=== PATIENT | male | born 1990 | race African-American/Black ===

== ENCOUNTER 2017-12-19 11:10 | Emergency (ER) | payer OTHER ==
[2017-12-19 11:28] VITALS: BP 155/63
--- NOTE | 2017-12-19 11:42 | UC ---
Throat Pain/Nasal Tex HPI - HPI Summary HPI Summary: 27 y/o male presents to the urgent care c/o sinus congestion w/ green nasal discharge and fatigue and for the past 2 days. Mild sore throat. Pain i s5/10 and has not taking anything to alleviate symptoms. Pt has not measure his temperature, but has felt hot w/ chills. Pt denies SOB, chest pain, abdominal pain, N/V/D, Hx of tick bites or rashes. - History of Current Complaint Chief Complaint: UCRespiratory Stated Complaint: NASAL CONGESTION, BODY ACHES Time Seen by Provider: 12/19/17 11:26 Hx Obtained From: Patient Onset/Duration: Gradual Onset, Lasting Days - 2 days, Still Present, Worse Since - today Severity: Moderate Pain Intensity: 5 - body aches and ROWELL Pain Scale Used: 0-10 Numeric Cough: Nonproductive Associated Signs & Symptoms: Positive: Sinus Discomfort, Nasal Discharge, Other - fatigue, chills - Epiglottits Risk Factors Epiglottis Risk Factors: Negative - Allergies/Home Medications Allergies/Adverse Reactions: Allergies Allergy/AdvReac Type Severity Reaction Status Date / Time No Known Allergies Allergy Verified 12/19/17 11:28 Home Medications: Home Medications Brimonidine Tartrate 1 drop OPHTHALMIC BID 12/19/17 [History Confirmed 12/19/17] Difluprednate 0.05% (NF) [Durezol 0.05% (NF)] 1 drop OPHTHALMIC BID 12/19/17 [ History Confirmed 12/19/17] Ganciclovir OPHTH 0.15%(NF) [Zirgan(NF)] 1 drop OPHTHALMIC BID 12/19/17 [ History Confirmed 12/19/17] PMH/Surg Hx/FS Hx/Imm Hx Previously Healthy: Yes Other Endocrine History: Iritis - Surgical History Surgical History: Yes Surgery Procedure, Year, and Place: ACL repairs x2 - Family History Known Family History: Positive: Other - testicular cancer Family History: glaucoma - Social History Occupation: Employed Full-time Lives: With Family Alcohol Use: Occasionally Substance Use Type: None Smoking Status (MU): Never Smoked Tobacco Review of Systems Constitutional: Chills, Fatigue, Other - body aches Skin: Negative Eyes: Negative ENT: Sore Throat - mild, Nasal Discharge, Sinus Congestion Respiratory: Cough - dry Cardiovascular: Negative Gastrointestinal: Negative Genitourinary: Negative Motor: Negative Neurovascular: Negative Musculoskeletal: Negative Neurological: Headache Psychological: Negative Is Patient Immunocompromised?: No All Other Systems Reviewed And Are Negative: Yes Physical Exam - Summary Physical Exam Summary: VITAL SIGNS: Reviewed. GENERAL: Patient is a well developed and nourished male who is sitting comfortable in the examining table. Patient is not in any acute respiratory distress. HEAD AND FACE: No signs of trauma. No ecchymosis, hematomas or skull depressions. No sinus tenderness. EYES: PERRLA, EOMI x 2, No injected conjunctiva, no nystagmus. No photophobia. EARS: Hearing grossly intact. Ear canals and tympanic membranes are within normal limits. Nose: edematous and erythematous nasal mucosa w/ clear nasal discharge. MOUTH: Positive no erythema, no tonsillar enlargement. Uvula in midline. NECK: Supple, trachea is midline, Positive anterior cervical lymphadenopathy, no JVD, no carotid bruit, no c-spine tenderness, neck with full ROM. No meningeal signs, no Kernig's or brudzinskis signs. CHEST: Symmetric, no tenderness at palpation LUNGS: Clear to auscultation bilaterally. No wheezing or crackles. CVS: Regular rate and rhythm, S1 and S2 present, no murmurs or gallops appreciated. ABDOMEN: Soft, non-tender. No signs of distention. No rebound no guarding, and no masses palpated. Bowel sounds are normal. EXTREMITIES: FROM in all major joints, no edema, no cyanosis or clubbing. NEURO: Alert and oriented x 3. No acute neurological deficits. Speech is normal and follows commands. SKIN: Dry and warm Triage Information Reviewed: Yes Vital Signs: Initial Vital Signs Temp 98.4 F 12/19/17 11:19 Pulse 53 12/19/17 11:19 Resp 18 12/19/17 11:19 BP 155/63 12/19/17 11:19 Pulse Ox 97 12/19/17 11:19 Throat Pain/Nasal Course/Dx - Course Course Of Treatment: 27 y/o male presents to the urgent care c/o sinus congestion w/ green nasal discharge and fatigue and for the past 2 days. Mild sore throat. Pain i s5/10 and has not taking anything to alleviate symptoms. Pt has not measure his temperature, but has felt hot w/ chills. Pt denies SOB, chest pain, abdominal pain, N/V/D, Hx of tick bites or rashes.Hx obtained. Pt with URI on examination. Influenza A&B ordered: result: negative. PT Rx ibuprofen PO to alleviates symptoms. Advised on hand washing and wear a mask to avoid spreading. Pt advised to rest, increase fluid intake, eat well and avoid strenuous exercise. If symptoms do not improve or worsen advised to return to the urgent care or f/u with PCP for further evaluation and treatment. Pt's BP is elevated today advised to decrease salt in diet, monitor BP and f/u with PCP for further management. Pt understood and agreed with plan of care. - Differential Dx/Diagnosis Differential Diagnosis/HQI/PQRI: Laryngitis, Mononucleosis, Pharyngitis, Sinusitis, Tonsillitis, URI Provider Diagnoses: 1- Upper respiratory infection. 2- Elevate BP w/o Hx of HTN Discharge - Sign-Out/Discharge Documenting (check all that apply): Patient Departure - D/c home All imaging exams completed and their final reports reviewed: No Studies - Discharge Plan Condition: Stable Disposition: HOME Prescriptions: Ibuprofen TAB* [Motrin TAB* 800 MG] 800 mg PO Q6H PRN #30 tab PRN Reason: Pain Patient Education Materials: Upper Respiratory Infection (ED), Low-Sodium Diet (ED) Forms: *Work Release Referrals: [facility] [place]] - 3 Days Additional Instructions: 1-Please take ibuprofen PO q6-8hrs prn as instructed after meals to alleviate pain and swelling. Increase fluid intake, eat well, rest and avoid strenuous exercise 2-If symptoms do not improve or worsen please return to the urgent care or f/u with your PCP in 3 days for further evaluation and treatment. 3-Your BP is elevated today. please decrease salt in your diet, monitor BP and if it continues to be elevated please f/u with your PCP for further management - Billing Disposition and Condition Condition: STABLE Disposition: Home - Attestation Statements Provider Attestation: I was available for consult. This patient was seen by the [facility]. The patient was not presented to, seen by, or examined by me. -Brandy
== END 2017-12-19 12:45 | disposition home or self-care (01) ==
LOC: UCEAST 11:10
DX: J06.9 Acute upper respiratory infection, unspecified (principal); R03.0 Elevated blood-pressure reading, without diagnosis of hypertension
CPT/HCPCS: 99202; G0463

== ENCOUNTER 2018-05-14 10:52 | Emergency (ER) | payer OTHER ==
[2018-05-14 11:23] VITALS: BP 120/56
[2018-05-14 12:02] LABS: Influenza A Molecular NEGATIVE (Negative); Influenza B Molecular NEGATIVE (Negative)
--- NOTE | 2018-05-14 12:25 | UC ---
FLU HPI - HPI Summary HPI Summary: 2 days of cough, congestion, headache, body aches and fatigue. Denies fever, nausea/vomiting. No flu shot this season. - History of Current Complaint Chief Complaint: UCGeneralIllness Stated Complaint: FLU LIKE SYMP Time Seen by Provider: 05/14/18 11:51 Hx Obtained From: Patient Onset/Duration: Gradual Onset, Lasting Days, Still Present Severity Currently: Moderate Severity Initially: Moderate Pain Intensity: 4 Pain Scale Used: 0-10 Numeric Associated Signs & Symptoms: Positive: Myalgia, Cough, Nasal Congestion, Headache. Negative: Fever, Sore Throat - Allergy/Home Medications Allergies/Adverse Reactions: Allergies Allergy/AdvReac Type Severity Reaction Status Date / Time No Known Allergies Allergy Verified 05/14/18 11:23 Home Medications: Home Medications Loteprednol 0.5% OPH.SUSP(NF) [Lotemax 0.5% OPH.SUSP (NF)] 1 % .ROUTE BID [History Confirmed 05/14/18] PMH/Surg Hx/FS Hx/Imm Hx - Additional Past Medical History Additional PMH: GLAUCOMA - Surgical History Surgical History: Yes Surgery Procedure, Year, and Place: ACL repairs x2 - Family History Known Family History: Positive: Other - testicular cancer Family History: glaucoma - Social History Alcohol Use: Occasionally Substance Use Type: None Smoking Status (MU): Never Smoked Tobacco Review of Systems All Other Systems Reviewed And Are Negative: Yes Constitutional: Positive: Fatigue ENT: Positive: Nasal Discharge Respiratory: Positive: Cough Cardiovascular: Positive: Negative Gastrointestinal: Positive: Negative Musculoskeletal: Positive: Myalgia Neurological: Positive: Headache Physical Exam Triage Information Reviewed: Yes Appearance: Well-Appearing, No Pain Distress, Well-Nourished Vital Signs: Initial Vital Signs Temp 99.5 F 05/14/18 11:20 Pulse 58 05/14/18 11:20 Resp 18 05/14/18 11:20 BP 120/56 05/14/18 11:20 Pulse Ox 100 05/14/18 11:20 Laboratory Tests 05/14/18 11:50 Influenza A (Rapid) Negative Influenza B (Rapid) Negative Vital Signs Reviewed: Yes Eyes: Positive: Conjunctiva Clear ENT: Positive: Hearing grossly normal, Pharynx normal, TMs normal Neck: Positive: Supple, Nontender, No Lymphadenopathy Respiratory Exam: Normal Cardiovascular Exam: Normal Abdomen Description: Positive: Soft Musculoskeletal: Positive: No Edema Neurological: Positive: Alert Psychological: Positive: Age Appropriate Behavior Skin: Negative: Rashes Flu Course/Dx - Differential Dx/Diagnosis Provider Diagnosis: Acute viral syndrome Discharge - Sign-Out/Discharge Documenting (check all that apply): Patient Departure All imaging exams completed and their final reports reviewed: No Studies - Discharge Plan Condition: Stable Disposition: HOME Patient Education Materials: Viral Syndrome (ED) Forms: *Work Release Referrals: No Primary Care Phys,NOPCP [Primary Care Provider] - Additional Instructions: FLU SWAB NEGATIVE. YOUR SYMPTOMS ARE STILL LIKELY VIRALLY MEDIATED AND SHOULD RESOLVE ON THEIR OWN WITH TIME. NO INDICATION FOR ANTIBIOTICS AT PRESENT. REST, HYDRATE, OTC MEDS NEEDED. SEEK FOLLOW-UP IF YOU ARE NOT IMPROVING OVER THE NEXT 1-2 WEEKS. CALL THE NUMBER BELOW FOR ASSISTANCE IN ESTABLISHING WITH A PCP An additional resource available to assist in finding the appropriate physician for your health care needs is the [facility] ([facility]). You may contact them by calling [phone]. - Billing Disposition and Condition Condition: STABLE Disposition: Home
== END 2018-05-14 12:41 | disposition home or self-care (01) ==
LOC: UCEAST 10:52
DX: B34.9 Viral infection, unspecified (principal); R05 Cough; R09.81 Nasal congestion; R51 Headache; M79.10 Myalgia, unspecified site; R53.83 Other fatigue
CPT/HCPCS: 99211; G0463

== ENCOUNTER 2018-12-31 08:24 | Emergency (ER) | payer OTHER ==
[2018-12-31 08:39] VITALS: BP 141/84
--- NOTE | 2018-12-31 08:55 | UC ---
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 Has been using ice regularly without relief, finding it painful to heel strike. - History of Current Complaint Chief Complaint: UCLowerExtremity Stated Complaint: ANKLE/FOOT INJURY Time Seen by Provider: 12/31/18 08:40 Hx Obtained From: Patient Onset/Duration: Sudden Onset, Lasting Days - 4 Severity Initially: Moderate Severity Currently: Moderate Pain Intensity: 6 Aggravating Factor(s): Standing, Ambulation Alleviating Factor(s): Rest, Ice Able to Bear Weight: Yes - Risk Factors Gout Risk Factors: Negative DVT Risk Factors: Negative Septic Arthritis Risk Factor: Negative - Allergies/Home Medications Allergies/Adverse Reactions: Allergies Allergy/AdvReac Type Severity Reaction Status Date / Time No Known Allergies Allergy Verified 05/14/18 11:23 PMH/Surg Hx/FS Hx/Imm Hx - Additional Past Medical History Additional PMH: glaucoma Previously Healthy: Yes - Surgical History Surgical History: Yes Surgery Procedure, Year, and Place: ACL repairs x2 - Family History Known Family History: Positive: Other - testicular cancer Family History: glaucoma - Social History Occupation: Employed Full-time Lives: Alone Alcohol Use: Occasionally Substance Use Type: None Smoking Status (MU): Never Smoked Tobacco Review of Systems All Other Systems Reviewed And Are Negative: Yes Constitutional: Positive: Negative Skin: Positive: Negative Eyes: Positive: Negative Respiratory: Positive: Negative Cardiovascular: Positive: Negative Musculoskeletal: Positive: Arthralgia, Other: - past right knee ACL repair x 2 Neurological: Positive: Negative Is Patient Immunocompromised?: No Physical Exam Triage Information Reviewed: Yes Appearance: Well-Appearing, Pain Distress - mild, Thin Vital Signs: Initial Vital Signs Temp 98.2 F 12/31/18 08:35 Pulse 47 12/31/18 08:35 Resp 16 12/31/18 08:35 BP 141/84 12/31/18 08:35 Pulse Ox 98 12/31/18 08:35 Respiratory: Positive: Lungs clear, Normal breath sounds Cardiovascular: Positive: RRR, No Murmur Musculoskeletal Exam: Other - tenderness to palpation right heel pad Musculoskeletal: Positive: Strength Intact, ROM Intact - full rom in right ankle and mid foot. Neurological Exam: Normal Psychological Exam: Normal Diagnostics - Radiology No standard instances Radiology Interpretation Completed By: Radiologist Summary of Radiographic Findings: Xray read by Dr. Winslow: no acute injury to bones of foot Lower Extremity Course/Dx - Course Course Of Treatment: Continue ice, use of acetaminophen for control of pain, follow up with sports med - Differential Dx/Diagnosis Differential Diagnosis/HQI/PQRI: Contusion, Sprain, Strain, Other - stress fracture Provider Diagnosis: Foot pain, right Discharge ED - Sign-Out/Discharge Documenting (check all that apply): Patient Departure All imaging exams completed and their final reports reviewed: Yes - Discharge Plan Condition: Good Disposition: HOME Patient Education Materials: Foot Sprain (ED) Referrals: No Primary Care Phys,NOPCP [Primary Care Provider] - Bee Yi MD [Medical Doctor] - Additional Instructions: Use heel pads in your shoes to help to ease pain. Use acetaminophen 100mg up to 3 times daily for relief of pain. Please call Sports Medicine to arrange an evaluation of your foot. - Billing Disposition and Condition Condition: GOOD Disposition: Home
== END 2018-12-31 09:45 | disposition home or self-care (01) ==
LOC: UCEAST 08:24
DX: M79.671 Pain in right foot (principal)
CPT/HCPCS: 99211; G0463